=== PATIENT | female | born 2000 | race Caucasian/White ===

== ENCOUNTER 2022-04-19 17:54 | Emergency (ER) | payer OTHER, SELFPAY ==
[2022-04-19 18:10] VITALS: BP 154/108; PULSE 75; RESP 18; TEMP 36.4; O2SAT 100
[2022-04-19 19:09] VITALS: BP 142/69; PULSE 67; RESP 18; O2SAT 99
[2022-04-19 20:14] LABS: Basophils Percent Auto 0.4 % (0.2-1.2); Eosinophils Absolute Auto 0.1 K/mm3 (0-0.3); Eosinophils Percent Auto 1.1 % (0-4.4); Hematocrit 37.2 % (37.0-47.0); Hemoglobin 12.6 g/dL (12.0-15.0); Immature Granulocyte Absolute 0.01 K/mm3 (0.00-0.031); Immature Granulocyte Percent A 0.2 % (0-0.5); Lymphocytes Absolute Auto 1.54 K/mm3 (0.9-3.2); Mean Corpuscular HGB Conc 33.9 g/dl (32-36); Mean Corpuscular Hemoglobin 29.9 pg (26-34); Mean Corpuscular Volume 88.2 fl (80-100); Mean Platelet Volume 11.1 fl (7.4-10.4); Monocytes Absolute Auto 0.4 K/mm3 (0.1-0.6); Monocytes Percent Auto 8.6 % (2.6-8.5); Neutrophils Absolute Auto 2.5 K/mm3 (1.3-6.7); Neutrophils Percent Auto 55.7 % (45.5-73.1); Platelet Count Result 227 k/mm3 (150-375); Red Blood Count 4.22 M/mm3 (4.2-5.4); Red Cell Distribution Width 12.6 % (11.5-14.5); White Blood Count 4.5 K/mm3 (4.5-10.0)
[2022-04-19 20:18] LABS: Anion Gap 9 mmol/L (8-16); Blood Urea Nitrogen 14 mg/dL (7-17); Calcium 9.2 mg/dL (8.4-10.2); Carbon Dioxide 26 mmol/L (22-30); Chloride 103 mmol/L (98-107); Estimated CRCL calculation 112 ml/min; Estimated Glomerular Filt Rate > 60; Glucose 83 mg/dL (65-110); Sodium 138 mmol/L (137-145)
--- NOTE | 2022-04-19 20:33 | ED.GENADULT ---
HPI - General Adult General Chief complaint: Nausea/Vomiting/Diarrhea Stated complaint: leg bruising/hi/nausea/sp kartik jumping Time Seen by Provider: 04/19/22 19:05 History of Present Illness HPI narrative: Patient is a 21-year-old female who presents ER with multiple issues. She reports last week she jumped off a 60 [place] in [place]. She reports she hit her buttock on water. Since then she has had buttock pain but has then developed increased back and neck body aches since then. Progressively worse each day. She is now having headache with some nausea and dizziness. No fevers or chills or sweats. She did not strike her head when she jumped and she did not lose consciousness. No alleviating factors at home. Related Data Allergies Allergy/AdvReac Type Severity Reaction Status Date / Time No Known Allergies Allergy Verified 04/19/22 19:23 Review of Systems Review of Systems: All systems reviewed & are unremarkable except as noted in HPI and below Constitutional: Constitutional: Denies chills and Denies fever(s) ENT: Reports dizziness, Denies nasal congestion and Denies sore throat Comments: Decreased hearing right ear Cardiovascular: Cardiovascular: Denies chest pain and Denies rapid heart rate Respiratory: Respiratory: Denies cough and Denies dyspnea Gastrointestinal: Gastrointestinal: Denies abdominal pain, Reports nausea and Denies vomiting Musculoskeletal: Musculoskeletal: Reports back pain, Reports myalgias, Denies arthralgias and Denies joint swelling Integumentary/Breasts: Skin/Breast: Denies erythema and Denies rash Comments: Bruising to left knee or buttock. Neurologic: Denies syncope, Reports headache(s), Denies focal weakness and Denies numbness PMFSH Past Medical History Medical History (Updated 04/19/22 @ 21:37 by Aron Beltran MD) Healthy female adult Surgical History Surgical History (Updated 04/19/22 @ 20:35 by Aron Beltran MD) No pertinent past surgical history Social History Social History (Updated 04/19/22 @ 20:35 by Aron Beltran MD) Smoking status: Never smoker Exam Narrative: GENERAL: Well-appearing, well-nourished, and in no acute distress. HEAD: Normocephalic, atraumatic. EYES: PERRL and EOMI. ENT: Mucous membranes moist. Right-sided cerumen impaction. After removal of debris TM on both sides appear normal. CHEST: Clear to auscultation. No respiratory distress. HEART: Regular rate and rhythm. Normal peripheral pulses. ABDOMEN: Soft, nontender, nondistended. EXTREMITIES: Normal range of motion. No edema. SKIN: Warm, dry, no rash. Left knee bruising NEURO: Alert and oriented x3. PSYCH: Normal mood and affect. Course Course Emergency Course: Patient's ear feels much better after irrigation removal of cerumen. Dizziness and nausea improved. Discharge home. Vital Signs Vital signs: Vital Signs Temperature 97.6 F 04/19/22 18:10 Pulse Rate 75 04/19/22 18:10 Respiratory Rate 18 04/19/22 18:10 Blood Pressure 154/108 H 04/19/22 18:10 Pulse Oximetry 100 04/19/22 18:10 Oxygen Delivery Room Air 04/19/22 18:10 Temperature 97.6 F 04/19/22 18:10 Pulse Rate 67 04/19/22 19:09 Respiratory Rate 18 04/19/22 19:09 Blood Pressure 142/69 H 04/19/22 19:09 Pulse Oximetry 99 04/19/22 19:09 Oxygen Delivery Room Air 04/19/22 18:10 Medical Decision Making Vital Signs Vital Signs: Vital Signs Temperature 97.6 F 04/19/22 18:10 Pulse Rate 75 04/19/22 18:10 Respiratory Rate 18 04/19/22 18:10 Blood Pressure 154/108 H 04/19/22 18:10 Pulse Oximetry 100 04/19/22 18:10 Oxygen Delivery Room Air 04/19/22 18:10 Temperature 97.6 F 04/19/22 18:10 Pulse Rate 67 04/19/22 19:09 Respiratory Rate 18 04/19/22 19:09 Blood Pressure 142/69 H 04/19/22 19:09 Pulse Oximetry 99 04/19/22 19:09 Oxygen Delivery Room Air 04/19/22 18:10 Lab Data Result diagrams: 04/19/22 19:56
[2022-04-19] MEDS: KETOROLAC 30 MG/ML VIAL (*BKC) IV PUSH (21:16)
[2022-04-19] MEDS: SODIUM CHLORIDE 0.9% IV 1,000 ML 999 ML IV CONT (21:16)
[2022-04-19] MEDS: ONDANSETRON INJ 4 MG/2 ML VIAL IV PUSH (21:17)
[2022-04-19 22:32] VITALS: BP 120/84; PULSE 74; RESP 18; O2SAT 99
== END 2022-04-19 22:33 | disposition home or self-care (01) ==
PROVIDERS: Emergency Provider Emergency Medicine
DX: S39.002A Unspecified injury of muscle, fascia and tendon of lower back, initial encounter (principal); S16.9XXA Unspecified injury of muscle, fascia and tendon at neck level, initial encounter; H61.21 Impacted cerumen, right ear; W16.612A Jumping or diving into natural body of water striking water surface causing other injury, initial encounter
CPT/HCPCS: 36415; 69209; 80048; 85025; 96361; 96374; 96375; 99284; J1885; J2405; J7030